=== PATIENT | female | born 1950 | race Hispanic/Latino ===

== ENCOUNTER 2024-05-22 07:20 | Day surgery (SDC) | payer MEDICARE ==
[2024-05-20 13:40] LABS: BASOPHILS % 0.3 % (0.0-1.0); EOSINOPHILS # (AUTO) 0.2 (0.0-0.4); EOSINOPHILS % 2.4 % (0.0-6.0); HEMATOCRIT 40.4 % (38.2-49.6); HEMOGLOBIN 13.5 g/dL (14.0-18.0); LYMPHOCYTES # (AUTO) 1.7 (1.0-3.2); LYMPHOCYTES % 26.3 % (18.0-39.1); MEAN CORPUSCULAR HEMOGLOBIN 33.9 pg (28-32); MEAN CORPUSCULAR HGB CONC 33.4 g/dL (31-35); MEAN CORPUSCULAR VOLUME 101.5 fL (81-99); MONOCYTES # (AUTO) 0.4 (0.2-0.8); MONOCYTES % 6.3 % (4.4-11.3); NEUTROPHILS # (AUTO) 4.1 (2.1-6.9); NEUTROPHILS % 64.5 % (38.7-80.0); PLATELET COUNT 244 x10e3/uL (140-360); RED BLOOD COUNT 3.98 x10e6/uL (4.3-5.7); RED CELL DISTRIBUTION WIDTH 11.9 % (11.7-14.4); WHITE BLOOD COUNT 6.31 x10e3/uL (4.8-10.8)
[2024-05-20 13:56] LABS: INR 0.87; PROTHROMBIN TIME 12.4 seconds (11.9-14.5)
[2024-05-20 14:06] LABS: ALBUMIN 3.9 g/dL (3.5-5.0); ALBUMIN/GLOBULIN RATIO 1.3 (0.8-2.0); ANION GAP 13.9 mmol/L (8-16); BILIRUBIN,TOTAL 0.4 mg/dL (0.2-1.2); CALCIUM 9.2 mg/dL (8.4-10.2); CREATININE, SERUM 0.83 mg/dL (0.72-1.25); POTASSIUM 3.9 mmol/L (3.5-5.1); TOTAL PROTEIN 6.8 g/dL (6.5-8.1)
[2024-05-22] VITALS (15 sets, daily range): BP systolic 141–194; BP diastolic 75–97; PULSE 66–76; RESP 9–29; TEMP 96.2–97.1; O2SAT 96–100
[~2024-05-22] VITALS: Ht 154.9 cm; Wt 70.3 kg
[~2024-05-22 07:20] MED LIST: ATORVASTATIN CA20 MG PO; FOLIC ACID-VIT1 EACH PO; HYDROCODON-ACE1 EAC9 PO; METOPROLOL TAR100 MG PO; NEURONTIN300 MG PO; OMEPRAZOLE40 MG PO; PAMELOR25 MG PO; QULIPTA60 MG PO; SYNJARDY 12.5-1 EACH PO; TIZANIDINE HCL4 MG PO
[2024-05-22] MEDS ORDERED: HEPARIN SOD (PORCINE) 1000 UNIT/ML 30ML ONE (08:03)
[2024-05-22] MEDS ORDERED: VERAPAMIL HCL 2.5 MG/ML 2 ML VIAL ONE (08:03)
[2024-05-22] MEDS ORDERED: SODIUM CHLORIDE 0.9% 1000ML 1,000 ML ONE (08:04)
[2024-05-22] MEDS ORDERED: HEPARIN SOD/SOD CHLORIDE 2,000 ML ONE (08:04)
[2024-05-22] MEDS ORDERED: IOPAMIDOL 370 MG/ML 100 ML INFUS..BTL INJ ONE (08:04)
[2024-05-22] MEDS ORDERED: NITROGLYCERIN/D5W 200 MCG/ML 250 ML ONE (08:04)
[2024-05-22] MEDS ORDERED: LIDOCAINE HCL 2% LOCAL 20 ML VIAL ONE (08:04)
[2024-05-22] MEDS ORDERED: FENTANYL CITRATE/PF 100MCG/2 ML INJ ONE (08:56)
[2024-05-22] MEDS ORDERED: MIDAZOLAM HCL 2 MG/2 ML VIAL ONE (08:56)
== END 2024-05-22 13:00 | disposition home or self-care (01) ==
LOC: CATH LAB 07:20 → EDSEX 09:00 → CATH LAB 13:00
PROVIDERS: ATTEND Internal Medicine
DX: I25.10 Atherosclerotic heart disease of native coronary artery without angina pectoris (principal); R94.39 Abnormal result of other cardiovascular function study; R07.9 Chest pain, unspecified; Z01.812 Encounter for preprocedural laboratory examination; Z79.84 Long term (current) use of oral hypoglycemic drugs; Z79.899 Other long term (current) drug therapy
CPT/HCPCS: 36415; 76937; 80053; 85025; 85610; 93458; C1887 ×2; J1644; J2003; J2250; J3010; J7030; Q9967; 93454; 99152

== ENCOUNTER 2024-09-03 19:06 | Inpatient (IN) | payer MEDICARE ==
[~2024-09-03] VITALS: Ht 157.5 cm; Wt 67.6 kg
[2024-09-03 19:37] VITALS: TEMP 98
[2024-09-03 20:02] LABS: BASOPHILS % 0.2 % (0.0-1.0); EOSINOPHILS # (AUTO) 0.1 (0.0-0.4); EOSINOPHILS % 3.3 % (0.0-6.0); HEMATOCRIT 37.8 % (34.2-44.1); HEMOGLOBIN 12.6 g/dL (12.0-16.0); LYMPHOCYTES # (AUTO) 2.1 (1.0-3.2); LYMPHOCYTES % 48.8 % (18.0-39.1); MEAN CORPUSCULAR HGB CONC 33.3 g/dL (31-35); MONOCYTES # (AUTO) 0.4 (0.2-0.8); MONOCYTES % 8.3 % (4.4-11.3); NEUTROPHILS # (AUTO) 1.6 (2.1-6.9); NEUTROPHILS % 39.2 % (38.7-80.0); PLATELET COUNT 200 x10e3/uL (140-360); RED BLOOD COUNT 3.82 x10e6/uL (3.6-5.1); RED CELL DISTRIBUTION WIDTH 12.6 % (11.7-14.4)
[2024-09-03 20:18] LABS: INR 0.76; PARTIAL THROMBOPLASTIN TIME 28.2 seconds (23.8-35.5); PROTHROMBIN TIME 11.4 seconds (11.9-14.5)
[2024-09-03 20:27] LABS: ALBUMIN 3.5 g/dL (3.5-5.0); ALBUMIN/GLOBULIN RATIO 1.1 (0.8-2.0); ANION GAP 14.9 mmol/L (8-16); BILIRUBIN,TOTAL 0.3 mg/dL (0.2-1.2); CALCIUM 8.9 mg/dL (8.4-10.2); CREATININE, SERUM 0.7 mg/dL (0.57-1.11); POTASSIUM 3.9 mmol/L (3.5-5.1); TOTAL PROTEIN 6.6 g/dL (6.5-8.1)
[2024-09-03] MEDS: ONDANSETRON HCL INJ 2MG/ML 2ML 2 MG/ML VIAL IV STA (21:12)
[2024-09-03] MEDS: Morphine 4mg INJECTION 4 MG/ML INJ IV ONE (21:13)
[2024-09-03] MEDS ORDERED: SODIUM CHLORIDE FLUSH 10 ML SYR INJ PRN (22:00)
[2024-09-03] MEDS ORDERED: DEXTROSE 50% SYRINGE 50 ML IV PRN (22:00)
[2024-09-03] MEDS ORDERED: DIPHENHYDRAMINE HCL 25 MG CAP ONE (23:12)
[2024-09-03] MEDS: DIPHENHYDRAMINE HCL 25 MG CAP PO ONE (23:20)
[2024-09-04] VITALS (9 sets, daily range): BP systolic 160–183; BP diastolic 71–92; PULSE 63–75; RESP 14–18; TEMP 97.7–98.1; O2SAT 96–100
[2024-09-04] MEDS: Morphine 4mg INJECTION 4 MG/ML INJ IV PRN (00:28)
[2024-09-04 04:14] LABS: TROPONIN I 0.008 ng/mL (0-0.300)
[2024-09-04 04:25] LABS: CHOL/HDL RATIO 2.8 (3.0-3.6)
[2024-09-04] MEDS: HYDRALAZINE HCL 20 MG/ML VIAL IV PRN (05:13)
[2024-09-04] MEDS: INSULIN REGULAR, HUMAN 100 UNIT/1 ML SQ SCH (07:30)
[2024-09-04] MEDS: GABAPENTIN 300 MG CAP PO SCH (08:27)
[2024-09-04] MEDS: PANTOPRAZOLE SOD 40 MG TABEC PO SCH (08:28)
[2024-09-04] MEDS: METOPROLOL TARTRATE 50 MG TAB PO SCH (08:28)
[2024-09-04] MEDS: HYDROCODONE/APAP 10MG-325MG TAB PO PRN (11:48)
[2024-09-04] MEDS ORDERED: METHOCARBAMOL750 MG PO (16:22)
[2024-09-04 17:30] LABS: TROPONIN I 0.003 ng/mL (0-0.300)
[2024-09-04] MEDS: ATORVASTATIN 20 MG TAB PO SCH (21:20)
[2024-09-04] MEDS: ONDANSETRON HCL INJ 2MG/ML 2ML 2 MG/ML VIAL IV PRN (21:27)
[2024-09-05] VITALS (7 sets, daily range): BP systolic 114–162; BP diastolic 65–95; PULSE 64–70; RESP 17–20; TEMP 97.5–98.6; O2SAT 95–100
[2024-09-05 07:16] LABS: BASOPHILS % 0.3 % (0.0-1.0); EOSINOPHILS # (AUTO) 0.2 (0.0-0.4); EOSINOPHILS % 2.6 % (0.0-6.0); HEMATOCRIT 40.8 % (34.2-44.1); HEMOGLOBIN 13.7 g/dL (12.0-16.0); LYMPHOCYTES # (AUTO) 1.8 (1.0-3.2); LYMPHOCYTES % 30.8 % (18.0-39.1); MEAN CORPUSCULAR HEMOGLOBIN 33.1 pg (28-32); MEAN CORPUSCULAR HGB CONC 33.6 g/dL (31-35); MEAN CORPUSCULAR VOLUME 98.6 fL (81-99); MONOCYTES # (AUTO) 0.5 (0.2-0.8); MONOCYTES % 9.2 % (4.4-11.3); NEUTROPHILS # (AUTO) 3.3 (2.1-6.9); NEUTROPHILS % 56.9 % (38.7-80.0); PLATELET COUNT 223 x10e3/uL (140-360); RED BLOOD COUNT 4.14 x10e6/uL (3.6-5.1); RED CELL DISTRIBUTION WIDTH 12.8 % (11.7-14.4); WHITE BLOOD COUNT 5.85 x10e3/uL (4.8-10.8)
[2024-09-05 07:37] LABS: CREATINE KINASE 30 IU/L (29-168)
[2024-09-05 07:39] LABS: ALBUMIN 3.6 g/dL (3.5-5.0); ALBUMIN/GLOBULIN RATIO 1.1 (0.8-2.0); ANION GAP 17.3 mmol/L (8-16); BILIRUBIN,TOTAL 0.5 mg/dL (0.2-1.2); CALCIUM 9.5 mg/dL (8.4-10.2); CREATININE, SERUM 0.69 mg/dL (0.57-1.11); POTASSIUM 4.3 mmol/L (3.5-5.1); TOTAL PROTEIN 6.8 g/dL (6.5-8.1)
[2024-09-05 08:13] LABS: TROPONIN I < 0.001 ng/mL (0-0.300)
[2024-09-06] VITALS (7 sets, daily range): BP systolic 138–170; BP diastolic 70–87; PULSE 70–81; RESP 18–22; TEMP 97.9–98.5; O2SAT 97–100
[2024-09-06] MEDS: METHYLPREDNISOLONE SOD SUCC 40 MG/ML VIAL 1ML IV SCH (05:23)
[2024-09-07] VITALS (7 sets, daily range): BP systolic 140–156; BP diastolic 71–95; PULSE 64–73; RESP 16–20; TEMP 97.5–98; O2SAT 95–100
[2024-09-07] MEDS ORDERED: FOLIC ACID0.4 MG PO (02:51)
[2024-09-07] MEDS ORDERED: BUSPIRONE HCL5 MG PO (02:53)
[2024-09-07] MEDS: BUSPIRONE HCL 5 MG TAB PO SCH (08:13)
[2024-09-07] MEDS: NORTRIPTYLINE HCL 25 MG CAP PO SCH (08:13)
[2024-09-08] VITALS: BP 138/70; PULSE 65; RESP 20; TEMP 96.7; O2SAT 96
[2024-09-08 04:00] VITALS: BP 152/68; PULSE 61; RESP 20; TEMP 97.6; O2SAT 98
[2024-09-08 08:37] VITALS: BP 149/65; PULSE 71; RESP 19; TEMP 97; O2SAT 100
[2024-09-08 09:00] VITALS: BP 149/65; PULSE 71; RESP 19; TEMP 97; O2SAT 100
== END 2024-09-08 09:09 | disposition home or self-care (01) | DRG 547 ==
LOC: ER 20:26 → ERHOLD 21:55 → MED/SURG3 09-04 09:04 → OBSVTOIN 09-05 09:54
PROVIDERS: ADMIT Internal Medicine; ATTEND Internal Medicine
DX: M45.2 Ankylosing spondylitis of cervical region (principal); R07.89 Other chest pain; I10 Essential (primary) hypertension; E78.5 Hyperlipidemia, unspecified; E11.9 Type 2 diabetes mellitus without complications; Z79.84 Long term (current) use of oral hypoglycemic drugs; K21.9 Gastro-esophageal reflux disease without esophagitis; Z71.3 Dietary counseling and surveillance; Z68.27 Body mass index [BMI] 27.0-27.9, adult; Z98.1 Arthrodesis status; Z71.81 Spiritual or religious counseling; Z79.899 Other long term (current) drug therapy; Z88.0 Allergy status to penicillin
CPT/HCPCS: 36415; 71045; 72125; 80053; 80061; 82550; 82948; 83880; 84484; 85025; 85610; 85730; 93005; 94799; 96372; 99284; G0378; J0360; J2270; J2405; J2470; J2919